=== PATIENT | female | born 1970 | race Caucasian/White ===

== ENCOUNTER 2024-10-01 08:01 | Emergency (ER) | payer MEDICAID ==
[~2024-10-01] VITALS: Ht 170.2 cm; Wt 87.7 kg
[~2024-10-01 08:01] MED LIST: HUMULIN R100 UNIT/1 INJ; METOPROLOL SUCC25 MG PO; NOVOLIN 70100 UNIT/1 SUB-Q; PERCOCET 7.5-31 EACH PO; ZESTRIL40 MG PO
--- OUTSIDE RECORDS SUMMARY | 2024-10-01 08:13 | XMS ---
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 Events No recent Security Events currently on file CRITERIA MET - 6 ED Visits in 6 Months - [facility] - 2 Visits in 30 Days - [facility] - 3 Facilities in 90 Days CARE PROVIDERS NICHOLAS GREENBERG [facility] Based Current Bernabe PHONE: [phone] JOSUE EDEN Physician Collateral Clerk Fabian HURLEY PHONE: [phone] DONALD MURPHY Emergency Medicine Fabian HAWKINS PHONE: [phone] [facility] Fabian PHONE: [phone] ACE HARLEY Emergency Medicine Current ANAND PHONE: [phone] PHUONG ROWE Nurse Practitioner: Current PHONE: [phone] MANJINDER CHAIDEZ Emergency Medicine Current PHONE: [phone] BRAD BELL Internal Medicine: Critical Care Medicine Current EMERGENCY PHONE: [phone] NATASHA DESAI Nurse Practitioner Current PHONE: [phone] RAMIREZ CALVERT Emergency Medicine [facility] PHONE: [phone] Ava has no Care Guidelines for this patient. E.D. VISIT COUNT (12 MO.) 4 [facility] 3 [facility] 3 [facility] [address] 2 [facility] 2 [facility] 2 [facility] 2 [facility] 2 [facility] 2 Cindy Mcneilhea H. 2 [facility] 2 [facility]. 2 [facility]. 2 [facility] 2 [facility] 2 [facility] 2 [facility] 2 [facility] 2 [facility] 1 [facility] M.C. 1 [facility] 1 [facility]' H. 1 [facility] 1 [facility] Pettigrew 1 [facility] 1 [facility] H. 1 [facility] H. - [facility] 1 [facility] M.C. 1 [facility].C. - [facility] 1 [facility] M.C. 1 [facility] ([place]) (CCD Exch.) 1 [facility].C. 1 [facility] M.C. [place] 1 [facility] [address] 1 [facility]. 1 [facility] H. 1 [facility] H[facility] 1 [facility].C. [place] 1 [place] [facility] H. - [facility] 1 Dr. Leonard Bangura [facility] H. [address] [facility] EMERGENCY ROOM(Low Bed H.) 1 [place] H 1 [facility] H. 1 [facility] 1 [facility] [place] 1 H[facility] - Tato Snyder M.C. 1 [facility] - Kasey Lowery 1 [facility] 1 [facility]. 1 [place] H. 1 [facility] H 1 [facility]. 1 [facility] Abimael - [facility] 1 [facility].C 1 Bustos M.C. 1 [facility] 1 [facility] 1 [facility] 1 [facility] H. 1 [facility] H. 1 [facility] - [facility].C. 1 [facility] - [facility].C. 1 [facility] H. 1 [facility] 1 [facility] M.C. 1 [facility] - Conor M.C. 1 [facility] 1 [facility]. 1 [place] H. 1 Kaitlynn M.C. [address] 1 [facility] H. 1 [facility] 1 [facility] 1 [facility] H. 1 [facility] H. - [place] 1 Stanley M.C. 1 [place] H 1 [facility]. ([place]) [address] 1 [facility] H. 1 [facility] H. 1 [facility] H. [address] [facility]. 1 [facility] [address] 1 [facility] 1 [facility] Health ([place]) (CCD Exch.) 1 [facility] H.-[place] 1 [facility] H. 1 [facility] 1 [facility] 1 [facility] H. 1 [facility] 1 [facility] 1 [facility] 1 [facility] 1 [facility] 1 [facility] H. - Adult \T\ Peds ED 1 [employer] [place] 1 [employer] Sandrine [place] 1 [facility]. 1 [facility] 1 [facility] 1 [facility] 1 [facility]._ TOTAL 137 NOTE: Visits indicate total known visits. ED/UCC VISIT TRACKING (12 MO.) 10/01/2024 08:02 IVETTE Watkins TYPE: Emergency COMPLAINT: - JAW PAIN 09/29/2024 16:26 Kaitlynn GUTIERREZ TYPE: Emergency COMPLAINT: - JAW PAIN,CANCER 09/28/2024 18:55 [facility] Alexa Minaya [place] TYPE: Emergency COMPLAINT: - JAW AND THROAT CANCER, HAVING BREAKTHROUGH PAIN 09/24/2024 15:18 Magan Corona Luck JOSE Bernal TYPE: Emergency 09/24/2024 09:32 [place] Alexa FLORES TYPE: Emergency DIAGNOSES: - Malignant neoplasm of mandible 09/16/2024 08:05 [facility] [place] TYPE: Emergency COMPLAINT: - NEOPLASM RELATED PAIN (ACUTE) (CHRONIC) DIAGNOSES: - Allergy status to analgesic agent - Allergy status to narcotic agent - Allergy status to other antibiotic agents - Neoplasm related pain (acute) (chronic) - Neoplasm related pain (acute) (chronic) 09/11/2024 17:54 Lawrence BOOTH TYPE: Emergency COMPLAINT: - Medical problem 09/11/2024 07:59 Cindy BOOTH TYPE: Emergency COMPLAINT: - cancer break through pain of left jaw 08/25/2024 22:42 [facility] Narayan WalterWalter TYPE: Emergency DIAGNOSES: - Jaw pain 08/24/2024 08:03 [facility] MJoe ([place]) TYPE: Emergency COMPLAINT: - JAW PAIN DIAGNOSES: - Allergy status to analgesic agent - Allergy status to other antibiotic agents - Allergy status to other drugs, medicaments and biological substances - Jaw pain - Jaw pain - 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 Jaw pain 08/18/2024 08:43 Stephanie STEWART [place] TYPE: Emergency DIAGNOSES: 0. Jaw pain 0. BREAKTHOUGH PAIN JAW CANCER 1. Jaw pain 2. Other chronic pain 08/17/2024 07:33 Sb STEWART TYPE: Emergency COMPLAINT: - PAIN JAW 08/14/2024 12:10 [facility] TYPE: Emergency COMPLAINT: - Jaw pain DIAGNOSES: 1. Malignant neoplasm of mandible 08/14/2024 09:33 [facility] TYPE: Emergency COMPLAINT: - Jaw pain DIAGNOSES: 1. Jaw pain 2. Other chronic pain 3. Essential (primary) hypertension 4. Type 2 diabetes mellitus without complications 08/13/2024 13:41 [facility] TYPE: Emergency COMPLAINT: - JAW PAIN DIAGNOSES: 1. Jaw pain 1. Jaw pain 1. Jaw pain 2. Malingerer [conscious simulation] 3. Essential (primary) hypertension 4. Type 2 diabetes mellitus without complications 5. Allergy status to other antibiotic agents 6. Allergy status to narcotic agent 7. Allergy status to analgesic agent 8. Allergy status to other drugs, medicaments and biological substances 9. Radiographic dye allergy status 08/09/2024 15:30 [facility] Sabine Gill TYPE: Emergency COMPLAINT: - JAW PAIN 08/07/2024 13:55 Akash BOOTH TYPE: Emergency DIAGNOSES: - Cervicalgia - Jaw pain 08/07/2024 07:54 [facility] TYPE: Emergency DIAGNOSES: 1. Headache, unspecified 08/05/2024 17:47 Saint Grabiel [place] TYPE: Emergency COMPLAINT: - facial pain DIAGNOSES: - Neoplasm related pain (acute) (chronic) Plus 117 More Visits INPATIENT VISIT TRACKING (12 MO.) No inpatient visits to display in this time frame [id number]
[2024-10-01] MEDS ORDERED: PROMETHEGAN12.5 MG PR (08:15)
[2024-10-01] MEDS ORDERED: ONDANSETRON 4 MG TAB ODT SL ONE (08:30)
[2024-10-01 08:55] VITALS: BP 166/114
== END 2024-10-01 08:55 | disposition home or self-care (01) ==
LOC: ED 08:01
DX: G89.3 Neoplasm related pain (acute) (chronic) (principal); C41.1 Malignant neoplasm of mandible; Z91.041 Radiographic dye allergy status; Z88.1 Allergy status to other antibiotic agents; Z88.8 Allergy status to other drugs, medicaments and biological substances; Z79.899 Other long term (current) drug therapy
CPT/HCPCS: 96372; 99283; J1171

== ENCOUNTER 2024-10-24 07:05 | Emergency (ER) | payer MEDICAID ==
[~2024-10-24] VITALS: Ht 170.2 cm; Wt 87.9 kg
[~2024-10-24 07:05] MED LIST changes: +PROMETHEGAN12.5 MG PR
--- OUTSIDE RECORDS SUMMARY | 2024-10-24 07:10 | XMS ---
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 Events No recent Security Events currently on file CRITERIA MET - 6 ED Visits in 6 Months - [facility] - 2 Visits in 30 Days - [facility] - 3 Facilities in 90 Days CARE PROVIDERS NICHOLAS GREENBERG [facility] Based Current Bernabe PHONE: [phone] JOSUE EDEN Physician Chart Writer Fabian HURLEY PHONE: [phone] DONALD MURPHY Emergency Medicine Fabian HAWKINS PHONE: [phone] [facility] Fabian PHONE: [phone] ACE HARLEY Emergency Medicine Current ANAND PHONE: [phone] PHUONG ROWE Nurse Practitioner: Current PHONE: [phone] MANJINDER CHAIDEZ Emergency Medicine Current PHONE: [phone] BRAD BELL Internal Medicine: Critical Care Medicine Current EMERGENCY PHONE: [phone] NATASHA DESAI Nurse Practitioner Current PHONE: [phone] RAMIREZ CALVERT Emergency Medicine [facility] PHONE: [phone] Ava has no Care Guidelines for this patient. E.D. VISIT COUNT (12 MO.) [address] [place] [address] 4 [facility] 4 [facility] 3 [facility] 3 [facility] 3 [facility] H 3 [facility] 3 [facility] 3 [facility] 3 [facility] [address] [facility] H. [address] 2 [facility] 2 [facility] [[email or web address] 2 [facility] H. 2 [facility] 2 [facility] H. 2 Cindy Clark H 2 [facility], [facility] 2 [facility] 2 Babb H 2 [facility] 2 [facility] - [facility] 2 [facility] 2 [facility] 2 [facility] 2 [facility] 1 [facility] Columbus[facility]. 1 [facility] H[facility] 1 [facility] - [facility] H. B[place] 1 [facility] 1 [facility] H. 1 [facility] H. - [facility] 1 [facility].C. 1 [facility].C. - [facility] 1 [facility].C. 1 [facility] ([facility] (CCD Exch.) 1 [facility].C 1 [facility] H. 1 [facility] Center[facility] - [facility].C. [place] 1 [facility] H. [address] 1 [facility]. 1 [facility] H. 1 [facility] 1 [facility] H. 1 [place] M.CWalter Gibson 1 [place] [facility] H. - [facility] [address] Dr. Leonard Bangura [facility] H. 1 [facility] H[facility] 1 [place] H. 1 [facility] H. 1 [facility] 1 [facility] [place] 1 HCA - Tato Snyder M.C. 1 H[facility] - Kasey Lowery 1 [facility] H. - [place] 1 G[facility]. 1 [place] H. 1 IHC - [facility] H. 1 IHC - [facility].C. 1 [facility] 1 [facility].. 1 [facility] H. 1 [facility] 1 [facility] 1 [facility] 1 [facility] H. 1 [facility] 1 [facility] H. 1 [facility] H. 1 [facility] - [facility].C. 1 [facility] - [facility] M.C. 1 [facility] - [facility] H. [address] [facility] 1 [facility] - [facility] M.C. 1 [facility] - Conor M.C. 1 [facility] 1 [facility].C 1 [place] H. 1 Kaitlynn M.C. [address] 1 [facility] H. 1 [facility] 1 [facility] 1 [facility] H. 1 [facility] 1 [facility] 1 [facility] 1 [facility] ([place]) 1 [facility] 1 [place] [facility] [place] 1 [facility] H. 1 [facility] H. 1 [facility] H. 1 [facility] [address] 1 [facility] 1 [facility] ([place]) (CCD Exch.) 1 [facility] 1 [facility] H. 1 [facility] 1 [facility] ([facility]) - [address] 1 [facility] 1 [facility] 1 [facility] 1 [facility] H. - Adult \T\ Peds ED 1 [employer] [facility] 1 [employer] [facility] Sandrine Arcerf 1 [facility] 1 [facility] 1 [facility]. TOTAL 157 NOTE: Visits indicate total known visits. ED/UCC VISIT TRACKING (12 MO.) 10/24/2024 07:06 IVETTE Watkins TYPE: Emergency COMPLAINT: - JAW PAIN 10/23/2024 16:06 [facility] Gabe GUTIERREZ TYPE: Emergency COMPLAINT: - Jaw and Throat Pain 10/22/2024 14:21 [facility] [place] TYPE: Emergency DIAGNOSES: - Encounter for issue of repeat prescription - FDC (current) use of opiate analgesic - Neoplasm related pain (acute) (chronic) - Cancer Pain 10/18/2024 07:43 [facility] Gabe FLORES TYPE: Emergency 10/17/2024 16:13 [facility] Gabe LEE TYPE: Emergency COMPLAINT: - CA IN JAW \T\ THROAT W/ SEVERE PAIN 10/13/2024 19:22 [facility] TYPE: Emergency COMPLAINT: - severe jaw and throat pain 10/13/2024 17:42 Akash BOOTH TYPE: Emergency DIAGNOSES: - Jaw pain 10/13/2024 15:05 [facility] TYPE: Emergency 10/12/2024 15:53 Saint Grabiel BOOTH TYPE: Emergency COMPLAINT: - facial/throat pain -cancer DIAGNOSES: - Neoplasm related pain (acute) (chronic) 10/12/2024 12:25 [facility] Gabe BOOTH TYPE: Emergency COMPLAINT: - Jaw pain 10/12/2024 07:49 [facility] Baljinder BOOTH M.C. 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 TYPE: Emergency 10/09/2024 20:11 [facility] TYPE: Emergency COMPLAINT: - jaw/throat pain DIAGNOSES: - Neoplasm related pain (acute) (chronic) 10/09/2024 07:49 [facility] TYPE: Emergency COMPLAINT: - General Medical- Adult 10/08/2024 18:55 [facility] TYPE: Emergency DIAGNOSES: - Neoplasm related pain (acute) (chronic) 10/08/2024 17:40 [facility] TYPE: Emergency COMPLAINT: - ENCOUNTER FOR ISSUE OF REPEAT PRESCRIPTION DIAGNOSES: 0. Encounter for issue of repeat prescription 0. FACE PAIN 1. Encounter for issue of repeat prescription 2. Acquired absence of both cervix and uterus 2. Allergy status to analgesic agent 2. manager long term care (current) use of insulin 2. Multiple sclerosis 2. Other manager long term care (current) drug therapy 2. Personal history of malignant neoplasm of bone 2. Personal history of malignant neoplasm of cervix uteri 2. Type 2 diabetes mellitus with other specified complication 10/08/2024 06:36 [facility] TYPE: Emergency DIAGNOSES: - Jaw pain 10/06/2024 09:27 Jonatan FLORES TYPE: Emergency COMPLAINT: - THROAT PAIN 10/06/2024 06:26 [facility] [place] TYPE: Emergency COMPLAINT: - jaw pain DIAGNOSES: - Pain, unspecified Plus 137 More Visits INPATIENT VISIT TRACKING (12 MO.) No inpatient visits to display in this time frame [email or web address]
[2024-10-24 08:38] VITALS: BP 190/115
== END 2024-10-24 08:38 | disposition home or self-care (01) ==
LOC: ED 07:05
DX: G89.29 Other chronic pain (principal); I10 Essential (primary) hypertension; C41.9 Malignant neoplasm of bone and articular cartilage, unspecified; C78.39 Secondary malignant neoplasm of other respiratory organs; Z91.041 Radiographic dye allergy status; Z88.8 Allergy status to other drugs, medicaments and biological substances; Z88.1 Allergy status to other antibiotic agents; Z79.4 Long term (current) use of insulin; Z79.899 Other long term (current) drug therapy
CPT/HCPCS: 96372; 99283; J1171